=== PATIENT | female | born 1975 | race Caucasian/White ===

== ENCOUNTER 2025-01-07 19:26 | Emergency (ER) | payer MEDICAID ==
[~2025-01-07] VITALS: Ht 157.5 cm; Wt 77.0 kg
[2025-01-07 19:35] VITALS: TEMP 36.7; O2SAT 98
[2025-01-07] MEDS: TETRACAINE 0.5% OPHTH DROPS 4ML RIGHTEYE ONE (20:29)
[2025-01-07] MEDS: FLUORESCEIN SODIUM 1MG/STRIP BOTHEYE ONE (20:29)
[2025-01-07] MEDS ORDERED: TETRACAINE 0.5% OPHTH DROPS 4ML RIGHTEYE ONE (23:45)
[2025-01-07] MEDS: FLUORESCEIN SODIUM 1MG/STRIP RIGHTEYE ONE (23:45)
[2025-01-08 01:33] VITALS: BP 126/75; PULSE 75; RESP 19; O2SAT 99
== END 2025-01-08 01:34 | disposition home or self-care (01) ==
LOC: ER 19:26
DX: H57.11 Ocular pain, right eye (principal); Z98.51 Tubal ligation status
CPT/HCPCS: 70486; 99284